=== PATIENT | female | born 1950 | race Caucasian/White ===

== ENCOUNTER → 2017-09-30 | Outpatient (CLI) | payer MEDICARE, OTHER ==
[~2017-09-30] MED LIST: ASPIR 8181 MG PO; ASPIRIN325 PO; COLACE100 MG PO; CRESTOR10 MG PO; FISH OIL300 MG PO; GLUMETZA1000 PO; HYDROCODONE-AP1 EAC6 PO; LISINOPRIL-HCT1 EACH PO; NEURONTIN 300300 M1 PO; OXYCODONE HCL 55 MG PO; PIOGLITAZ-GLIM1 EACH PO; TRAMADOL 50 MG50 MG PO; UNICOMPLEX M TA1 TA1 PO; XARELTO10 MG PO; ZOLOFT100 MG PO; ZOLOFT50 MG PO
--- NOTE | 2017-09-30 12:45 | 2DMMODE ---
[place] [address] 2 D/M-MODE ECHOCARDIOGRAM Name: JOVANNY ALBARRAN Room: [facility]#: [id number] Admission: 09/30/17 Attend Phys: Praveena Samuel, Discharge: Date of : 50 Date of Service: 09/30/17 1245 Report #: [id number] THIS REPORT FOR: //name// APPROVED REPORT Study performed: 09/30/2017 10:09:48 EXAM: Comprehensive 2D, Doppler, and color-flow Echocardiogram Patient Location: Out-Patient Status: routine BSA: 2.04 HR: 77 bpm BP: 142/90 mmHg Other Information Study Quality: Good Indications Murmur 2D Dimensions LVEF(%): 71.93 (>50%) IVSd: 10.67 (7-11mm) LVOT Diam: 20.21 (18-24mm) LVDd: 51.12 mm PWd: 9.84 (7-11mm) Ascending Ao: 32.58 (22-36mm) LVDs: 29.98 (25-40mm) Aortic Root: 30.03 mm Duvall's LVEF: 71.93 % Volumes Left Atrial Volume (Systole) LA ESV Index: 15.90 mL/m2 Aortic Valve AoV Peak Leroy.: 1.69 m/s AO Peak Gr.: 11.46 mmHg LVOT Max P.04 mmHg AO Mean Gr.: 6.55 mmHg LVOT Mean P.12 mmHg LVOT Max V: 1.01 m/s AO V2 VTI: 31.45 cm LVOT Mean V: 0.67 m/s TRINI (VTI): 2.37 cm2 LVOT V1 VTI: 23.28 cm Mitral Valve MV Peak Gr.: 6.71 mmHg MV Mean Gr.: 2.96 mmHg E/A Ratio: 0.95 [place] [address] 2 D/M-MODE ECHOCARDIOGRAM Name: KRYSTINA ALBARRANLAILA MCLAUGHLIN Room: [facility]#: [id number] Admission: 09/30/17 Attend Phys: Praveena Samuel, Discharge: Date of : 50 Date of Service: 09/30/17 1245 Report #: [id number] MV Decel. Time: 335.65 ms MV E Max Leroy.: 1.02 m/s MV PHT: 97.34 ms MVA (PHT): 2.26 cm2 TDI E/Lateral E': 14.57 E/Medial E': 14.57 Medial E' Leroy.: 0.07 m/s Lateral E' Leroy.: 0.07 m/s Pulmonary Valve PV Peak Leroy.: 1.02 m/s PV Peak Gr.: 4.19 mmHg Tricuspid Valve RAP Estimate: 5.00 mmHg TR Peak Gr.: 16.47 mmHg RVSP: 21.47 mmHg PA Pressure: 21.47 mmHg Left Ventricle The left ventricle is normal size. There is normal LV segmental wall motion. There is normal left ventricular wall thickness. Left ventricular systolic function is normal. LVEF is >70%. Grade I - abnormal relaxation pattern. Right Ventricle The right ventricle is normal size. The right ventricular systolic function is normal. Atria The left atrium size is normal. The right atrium size is normal. Aortic Valve Aortic valve is mildly calcified. No aortic regurgitation is present. There is no aortic valvular stenosis. Mitral Valve There is mitral annular calcification. Mild mitral regurgitation. No evidence of mitral valve stenosis. Tricuspid Valve The tricuspid valve is normal in structure. Mild tricuspid regurgitation. The RVSP is 21 mmHg. Pulmonic Valve The pulmonary valve is normal in structure[place] [address] 2 D/M-MODE ECHOCARDIOGRAM Name: JOVANNY ALBARRANN Room: [facility]#: [id number] Admission: 09/30/17 Attend Phys: Praveena Samuel, Discharge: Date of : 50 Date of Service: 09/30/17 1245 Report #: [id number] regurgitation. Great Vessels The aortic root is normal in size. IVC is normal in size and collapses with >50% inspiration Pericardium There is no pericardial effusion. <Conclusion> The left ventricle is normal size. There is normal left ventricular wall thickness. Left ventricular systolic function is normal. LVEF is >70%. Grade I - abnormal relaxation pattern. Aortic valve is mildly calcified. There is no aortic valvular stenosis. There is mitral annular calcification. Mild mitral regurgitation. Mild tricuspid regurgitation. The RVSP is 21 mmHg. <ELECTRONICALLY SIGNED> By: Nitish Thomas MD, FACC 09/30/17 1245 1245 1245 Nitish Thomas MD, FACC /INF
== END ==
LOC: M.CRD 09:45
DX: I08.1 Rheumatic disorders of both mitral and tricuspid valves (principal)

== ENCOUNTER → 2018-06-24 | Outpatient (CLI) | payer MEDICARE, OTHER | LOC: M.RAD 04-22 11:50 | DX: Z12.31 Encounter for screening mammogram for malignant neoplasm of breast (principal) ==

== ENCOUNTER → 2018-07-07 | Outpatient (CLI) | payer MEDICARE, OTHER | LOC: M.RAD 09:00 | DX: Z13.820 Encounter for screening for osteoporosis (principal); N95.1 Menopausal and female climacteric states; E11.9 Type 2 diabetes mellitus without complications; I10 Essential (primary) hypertension; E78.5 Hyperlipidemia, unspecified; Z88.2 Allergy status to sulfonamides ==

== ENCOUNTER 2019-12-06 14:55 | Emergency (ER) | payer MEDICARE, OTHER ==
[~2019-12-06] VITALS: Ht 157.5 cm; Wt 101.6 kg
[2019-12-06] MEDS ORDERED: LISINOPRIL-HCT1 EACH PO (15:18)
[2019-12-06] MEDS ORDERED: SERTRALINE HCL100 MG PO (15:18)
[2019-12-06] MEDS ORDERED: PIOGLITAZONE30 MG PO (15:19)
[2019-12-06] MEDS ORDERED: GLIMEPIRIDE4 MG PO (15:19)
[2019-12-06] MEDS ORDERED: ASA81BEC PO (15:19)
[2019-12-06] MEDS ORDERED: LIPITOR40 MG PO (15:20)
[2019-12-06] MEDS ORDERED: METFORMIN HCL500 M3 PO (15:20)
[2019-12-06 18:14] VITALS: BP 104/43
== END 2019-12-06 18:10 | disposition home or self-care (01) ==
LOC: M.ERS 14:55
DX: S92.334A Nondisplaced fracture of third metatarsal bone, right foot, initial encounter for closed fracture (principal); S92.344A Nondisplaced fracture of fourth metatarsal bone, right foot, initial encounter for closed fracture; E11.9 Type 2 diabetes mellitus without complications; Z90.89 Acquired absence of other organs; Z98.51 Tubal ligation status; Z88.2 Allergy status to sulfonamides; W01.0XXA Fall on same level from slipping, tripping and stumbling without subsequent striking against object, initial encounter; Y93.89 Activity, other specified; Y92.89 Other specified places as the place of occurrence of the external cause; Y99.8 Other external cause status